=== PATIENT | female | born 1970 | race Caucasian/White ===

== ENCOUNTER 2022-08-21 10:11 | Inpatient (IN) ==
[2022-08-21] MEDS ORDERED: Ondansetron 4 MG/2 ML VIAL IVP PRN (12:19)
[2022-08-21] MEDS ORDERED: Naloxone 0.4 MG/ML INJ IVP PRN (12:19)
[2022-08-21] MEDS ORDERED: Ketorolac 30 MG/ML VIAL IM PRN (12:19)
[2022-08-21] MEDS ORDERED: SEMAGLUTIDE 0.25 MG/0.2 ML SQ SCH (12:45)
[2022-08-21 13:33] LABS: Basophils % 0.5 %; Eosinophils # 0.1 K/mcL (0.0-0.6); Eosinophils % 1.2 %; Hemoglobin 13.6 g/dL (11.5-15.4); Immature Granulocytes % 0.3 % (0-4); Lymphocytes # 1.3 K/mcL (0.6-4.6); Lymphocytes % 16.8 %; Mean Corpuscular HGB Conc 34.9 g/dL (31.6-35.5); Mean Corpuscular Hemoglobin 29.9 pg (28.0-33.3); Mean Corpuscular Volume 85.7 fL (83.0-100.0); Mean Platelet Volume 9.1 fL (9.4-12.4); Monocytes # 0.5 K/mcL (0.0-1.3); Monocytes % 6.8 %; Neutrophils # 5.7 K/mcL (1.6-8.9); Platelet Count 143 K/mcL (140-400); Red Blood Count 4.55 M/mcL (3.82-4.97); Red Cell Distribution Width 14.2 % (11.5-14.5); Segmented Neutrophils % 74.4 %; White Blood Count 7.7 K/mcL (4.3-11.1)
[2022-08-21 13:52] LABS: Albumin 3.4 g/dL (3.5-5.7); Albumin/Globulin Ratio 1.2 (1.1-2.2); Bilirubin,Total 1.2 mg/dL (0.3-1.0); Calcium 9.5 mg/dL (8.6-10.3); Globulin 2.9 g/dL (2.4-3.5); Potassium 4.4 mEq/L (3.5-5.1); Total Protein 6.3 g/dL (6.4-8.9)
[2022-08-21] MEDS: *HR* HYDROcodone/Acet 5/325 mg TABLET PO PRN (14:08)
[2022-08-21] MEDS ORDERED: D5% in Water 1,000 ML IVC PRN (14:51)
[2022-08-21] MEDS ORDERED: *HR* Dextrose 50 % in Water (Syg) 50 ML SYRINGE IVP PRN (14:51)
[2022-08-21] MEDS ORDERED: Dextrose Gel 15 GM/37.5 ML TUBE PO PRN ×2 (14:51)
[2022-08-21] MEDS: Insulin LISPRO 300 UNITS/3 ML VIAL SUBQ SCH ×2 (17:18→20:55)
[2022-08-21] MEDS: MetroNIDAZOLE 500 MG/100 ML 500 MG/100 ML BAG IVPB SCH (18:23)
[2022-08-21] MEDS: Gabapentin 300 MG CAPSULE PO SCH (20:54)
[2022-08-21] MEDS: 0.9 % Sodium Chloride 1,000 ML IVC SCH (20:55)
[2022-08-21] MEDS: *HR* OxyCODONE Immed Rel 5 MG TABLET PO PRN (21:01)
[2022-08-21] MEDS: Insulin DETEMIR 100 UNIT/ML X5UNITS SUBQ SCH (21:02)
[2022-08-22] MEDS: MetroNIDAZOLE 500 MG/100 ML 500 MG/100 ML BAG IVPB SCH ×3 (00:22→17:53)
[2022-08-22] MEDS: *HR* OxyCODONE Immed Rel 5 MG TABLET PO PRN ×3 (03:52→17:54)
[2022-08-22 06:04] LABS: Albumin 3.2 g/dL (3.5-5.7); Albumin/Globulin Ratio 1.1 (1.1-2.2); Bilirubin,Total 1.2 mg/dL (0.3-1.0); Calcium 8.7 mg/dL (8.6-10.3); Globulin 2.8 g/dL (2.4-3.5); Potassium 3.9 mEq/L (3.5-5.1)
[2022-08-22 07:25] LABS: Basophils % 0.6 %; Eosinophils # 0.2 K/mcL (0.0-0.6); Eosinophils % 2.7 %; Hematocrit 36.1 % (35.3-44.9); Hemoglobin 12.3 g/dL (11.5-15.4); Immature Granulocytes % 0.5 % (0-4); Lymphocytes # 1.2 K/mcL (0.6-4.6); Lymphocytes % 18.6 %; Mean Corpuscular HGB Conc 34.1 g/dL (31.6-35.5); Mean Corpuscular Hemoglobin 29.6 pg (28.0-33.3); Mean Platelet Volume 9.6 fL (9.4-12.4); Monocytes # 0.6 K/mcL (0.0-1.3); Monocytes % 8.6 %; Neutrophils # 4.6 K/mcL (1.6-8.9); Platelet Count 142 K/mcL (140-400); Red Blood Count 4.15 M/mcL (3.82-4.97); Red Cell Distribution Width 14.4 % (11.5-14.5); White Blood Count 6.6 K/mcL (4.3-11.1)
[2022-08-22] MEDS: Insulin LISPRO 300 UNITS/3 ML VIAL SUBQ SCH ×3 (09:03→17:54)
[2022-08-22] MEDS: Insulin DETEMIR 100 UNIT/ML X5UNITS SUBQ SCH (09:45)
[2022-08-22] MEDS: Gabapentin 300 MG CAPSULE PO SCH ×2 (09:46→22:52)
[2022-08-22] MEDS: Losartan/HCTZ 50-12.5 TABLET PO SCH (09:46)
[2022-08-22] MEDS ORDERED: Naloxone 0.4 MG/ML INJ IVP PRN (12:35)
[2022-08-22] MEDS: *HR* HYDROcodone/Acet 5/325 mg TABLET PO PRN (13:10)
[2022-08-22] MEDS: 0.9 % Sodium Chloride 1,000 ML IVC SCH (17:53)
[2022-08-22] MEDS: Mirtazapine 15 MG TABLET PO SCH (22:52)
[2022-08-23] MEDS: MetroNIDAZOLE 500 MG/100 ML 500 MG/100 ML BAG IVPB SCH ×3 (00:44→16:19)
[2022-08-23] MEDS: *HR* OxyCODONE Immed Rel 5 MG TABLET PO PRN ×3 (01:01→22:27)
[2022-08-23] MEDS: Insulin LISPRO 300 UNITS/3 ML VIAL SUBQ SCH ×5 (07:51→22:24)
[2022-08-23] MEDS: Insulin DETEMIR 100 UNIT/ML X5UNITS SUBQ SCH ×3 (07:53→22:25)
[2022-08-23] MEDS: Acetaminophen 325 MG TABLET PO PRN (07:59)
[2022-08-23] MEDS: Losartan/HCTZ 50-12.5 TABLET PO SCH (08:36)
[2022-08-23] MEDS: Gabapentin 300 MG CAPSULE PO SCH (08:36)
[2022-08-23 09:22] LABS: Albumin 2.9 g/dL (3.5-5.7); Albumin/Globulin Ratio 1.2 (1.1-2.2); Bilirubin,Total 1.1 mg/dL (0.3-1.0); Calcium 7.9 mg/dL (8.6-10.3); Globulin 2.5 g/dL (2.4-3.5); Potassium 4.3 mEq/L (3.5-5.1); Total Protein 5.4 g/dL (6.4-8.9)
[2022-08-23] MEDS ORDERED: Sennosides 8.6 MG TABLET PO PRN (17:05)
[2022-08-23] MEDS: Mirtazapine 15 MG TABLET PO SCH (22:15)
[2022-08-23] MEDS: Gabapentin 100 MG CAPSULE PO SCH (22:17)
[2022-08-24] MEDS: MetroNIDAZOLE 500 MG/100 ML 500 MG/100 ML BAG IVPB SCH ×4 (00:50→23:13)
[2022-08-24] MEDS: Gabapentin 100 MG CAPSULE PO SCH ×2 (08:17→22:01)
[2022-08-24] MEDS: Acetaminophen 325 MG TABLET PO PRN (08:18)
[2022-08-24] MEDS: Insulin LISPRO 300 UNITS/3 ML VIAL SUBQ SCH ×4 (08:27→22:08)
[2022-08-24] MEDS: Insulin DETEMIR 100 UNIT/ML X5UNITS SUBQ SCH ×2 (08:27→23:18)
[2022-08-24] MEDS: *HR* OxyCODONE Immed Rel 5 MG TABLET PO PRN ×2 (08:36→22:00)
[2022-08-24 16:07] LABS: Calcium 8.2 mg/dL (8.6-10.3); Potassium 4.8 mEq/L (3.5-5.1)
[2022-08-24] MEDS ORDERED: 0.9 % Sodium Chloride 1,000 ML IVC SCH (20:15)
[2022-08-24] MEDS: Mirtazapine 15 MG TABLET PO SCH (22:01)
[2022-08-25 05:05] LABS: Basophils % 0.8 %; Eosinophils # 0.2 K/mcL (0.0-0.6); Eosinophils % 3.6 %; Hematocrit 31.1 % (35.3-44.9); Immature Granulocytes % 0.6 % (0-4); Lymphocytes # 1.3 K/mcL (0.6-4.6); Lymphocytes % 25.8 %; Mean Corpuscular HGB Conc 34.1 g/dL (31.6-35.5); Mean Corpuscular Hemoglobin 29.9 pg (28.0-33.3); Mean Corpuscular Volume 87.6 fL (83.0-100.0); Mean Platelet Volume 9.3 fL (9.4-12.4); Monocytes # 0.6 K/mcL (0.0-1.3); Monocytes % 11.9 %; Neutrophils # 2.9 K/mcL (1.6-8.9); Platelet Count 157 K/mcL (140-400); Red Blood Count 3.55 M/mcL (3.82-4.97); Red Cell Distribution Width 13.8 % (11.5-14.5); Segmented Neutrophils % 57.3 %
[2022-08-25 05:15] LABS: Hemoglobin 10.6 g/dL (11.5-15.4)
[2022-08-25 05:24] LABS: Calcium 8.6 mg/dL (8.6-10.3); Potassium 4.3 mEq/L (3.5-5.1)
[2022-08-25] MEDS: *HR* OxyCODONE Immed Rel 5 MG TABLET PO PRN ×3 (05:45→20:55)
[2022-08-25] MEDS: Pantoprazole 40 MG VIAL IVP SCH (08:35)
[2022-08-25] MEDS: Gabapentin 100 MG CAPSULE PO SCH ×2 (08:35→20:34)
[2022-08-25] MEDS: Insulin DETEMIR 100 UNIT/ML X5UNITS SUBQ SCH ×2 (08:37→22:02)
[2022-08-25] MEDS: MetroNIDAZOLE 500 MG/100 ML 500 MG/100 ML BAG IVPB SCH (08:39)
[2022-08-25] MEDS: Insulin LISPRO 300 UNITS/3 ML VIAL SUBQ SCH ×4 (08:57→21:42)
[2022-08-25] MEDS: Ertapenem 1,000 MG in 0.9 % Sodium Chloride Mini Bag 100 ML IVPB SCH (12:38)
[2022-08-25] MEDS: Mirtazapine 15 MG TABLET PO SCH (20:34)
[2022-08-26] MEDS: Insulin LISPRO 300 UNITS/3 ML VIAL SUBQ SCH ×4 (09:44→22:01)
[2022-08-26] MEDS: Gabapentin 100 MG CAPSULE PO SCH ×2 (09:44→21:58)
[2022-08-26] MEDS: Pantoprazole 40 MG VIAL IVP SCH (09:45)
[2022-08-26] MEDS: Insulin DETEMIR 100 UNIT/ML X5UNITS SUBQ SCH ×2 (09:50→22:04)
[2022-08-26] MEDS: Ertapenem 1,000 MG in 0.9 % Sodium Chloride Mini Bag 100 ML IVPB SCH (12:42)
[2022-08-26] MEDS: *HR* OxyCODONE Immed Rel 5 MG TABLET PO PRN (21:57)
[2022-08-26] MEDS: Mirtazapine 15 MG TABLET PO SCH (21:58)
[2022-08-27 05:26] LABS: Hematocrit 33.1 % (35.3-44.9); Hemoglobin 11.1 g/dL (11.5-15.4); Mean Corpuscular HGB Conc 33.5 g/dL (31.6-35.5); Mean Corpuscular Hemoglobin 29.2 pg (28.0-33.3); Mean Corpuscular Volume 87.1 fL (83.0-100.0); Mean Platelet Volume 9.2 fL (9.4-12.4); Platelet Count 158 K/mcL (140-400); Red Cell Distribution Width 13.8 % (11.5-14.5)
[2022-08-27 05:43] LABS: Calcium 8.7 mg/dL (8.6-10.3); Potassium 4.1 mEq/L (3.5-5.1)
[2022-08-27] MEDS ORDERED: 0.9 % Sodium Chloride 1,000 ML IVC SCH (07:00)
[2022-08-27] MEDS: Insulin LISPRO 300 UNITS/3 ML VIAL SUBQ SCH ×4 (07:50→20:24)
[2022-08-27] MEDS: Pantoprazole 40 MG VIAL IVP SCH (07:56)
[2022-08-27] MEDS: Gabapentin 100 MG CAPSULE PO SCH ×2 (07:58→20:17)
[2022-08-27] MEDS: Insulin DETEMIR 100 UNIT/ML X5UNITS SUBQ SCH ×2 (08:00→20:25)
[2022-08-27] MEDS ORDERED: *HR* HYDROMORPHONE 2 MG/ML VIAL ONE (08:27)
[2022-08-27] MEDS ORDERED: Lidocaine -MPF 2% 2 ML VIAL ONE (08:32)
[2022-08-27] MEDS ORDERED: *HR* Succinylcholine 200 MG/10 ML VIAL IVP ONE (08:32)
[2022-08-27] MEDS ORDERED: *HR* Propofol 200 MG/20 ML VIAL IVP ONE (08:32)
[2022-08-27] MEDS ORDERED: *HR* Midazolam HCl 2 MG/2 ML VIAL ONE (08:33)
[2022-08-27] MEDS ORDERED: *HR* FentaNYL (PF) 100 MCG/2 ML VIAL ONE (08:33)
[2022-08-27] MEDS ORDERED: Ondansetron 4 MG/2 ML VIAL IVP PRN ×2 (08:54→13:43)
[2022-08-27] MEDS ORDERED: Promethazine 6.25 MG in Water for inj. (sterile) 20 ML IVPB PRN ×2 (08:54→13:43)
[2022-08-27] MEDS ORDERED: *HR* OxyCODONE Immed Rel 5 MG TABLET PO PRN ×2 (08:54→13:43)
[2022-08-27] MEDS ORDERED: Ondansetron 4 MG/2 ML VIAL ONE (10:20)
[2022-08-27] MEDS ORDERED: EPHEDrine sulfate 50 MG/10 ML VIAL IVP ONE (10:25)
[2022-08-27] MEDS: Ertapenem 1,000 MG in 0.9 % Sodium Chloride Mini Bag 100 ML IVPB SCH (11:00)
[2022-08-27] MEDS: *HR* HYDROmorphone PF 0.5 MG/0.5 ML SYRINGE IVP PRN ×4 (11:50→12:22)
[2022-08-27] MEDS ORDERED: Naloxone 0.4 MG/ML INJ IVP PRN (13:43)
[2022-08-27] MEDS ORDERED: *HR* Dextrose 50 % in Water (Syg) 50 ML SYRINGE IVP PRN (13:43)
[2022-08-27] MEDS ORDERED: *HR* HYDROcodone/Acet 5/325 mg TABLET PO PRN (13:43)
[2022-08-27] MEDS ORDERED: Acetaminophen 325 MG TABLET PO PRN (13:43)
[2022-08-27] MEDS ORDERED: D5% in Water 1,000 ML IVC PRN (13:43)
[2022-08-27] MEDS ORDERED: Sennosides 8.6 MG TABLET PO PRN (13:43)
[2022-08-27] MEDS ORDERED: Dextrose Gel 15 GM/37.5 ML TUBE PO PRN ×2 (13:43)
[2022-08-27] MEDS: *HR* OxyCODONE Immed Rel 5 MG TABLET PO PRN (15:35)
[2022-08-27] MEDS: Mirtazapine 15 MG TABLET PO SCH (20:17)
[2022-08-28 03:55] LABS: Hematocrit 31.9 % (35.3-44.9); Mean Corpuscular HGB Conc 34.5 g/dL (31.6-35.5); Mean Corpuscular Hemoglobin 29.7 pg (28.0-33.3); Mean Corpuscular Volume 86.2 fL (83.0-100.0); Mean Platelet Volume 9.2 fL (9.4-12.4); Platelet Count 162 K/mcL (140-400); Red Cell Distribution Width 13.7 % (11.5-14.5); White Blood Count 4.9 K/mcL (4.3-11.1)
[2022-08-28 04:12] LABS: Calcium 8.9 mg/dL (8.6-10.3); Potassium 4.5 mEq/L (3.5-5.1)
[2022-08-28] MEDS ORDERED: Pantoprazole 40 MG VIAL IVP SCH (09:00)
[2022-08-28] MEDS: Insulin LISPRO 300 UNITS/3 ML VIAL SUBQ SCH ×4 (09:32→20:10)
[2022-08-28] MEDS: Insulin DETEMIR 100 UNIT/ML X5UNITS SUBQ SCH ×2 (09:33→21:36)
[2022-08-28] MEDS: Losartan/HCTZ 50-12.5 TABLET PO SCH (09:33)
[2022-08-28] MEDS: Gabapentin 100 MG CAPSULE PO SCH ×2 (09:33→21:33)
[2022-08-28] MEDS: Ertapenem 1,000 MG in 0.9 % Sodium Chloride Mini Bag 100 ML IVPB SCH (13:10)
[2022-08-28] MEDS: Mirtazapine 15 MG TABLET PO SCH (21:32)
[2022-08-28] MEDS: *HR* OxyCODONE Immed Rel 5 MG TABLET PO PRN (21:32)
[2022-08-29 06:12] LABS: BUN/Creatinine Ratio 23 (6-26); Blood Urea Nitrogen 17 mg/dL (6-20); Calcium 8.5 mg/dL (8.6-10.3); Carbon Dioxide 30 mEq/L (23-29); Chloride 109 mEq/L (98-107); Glucose 89 mg/dL (70-105); Osmolality,Calculated 295 (280-300); Sodium 142 mEq/L (136-145)
[2022-08-29] MEDS: Insulin LISPRO 300 UNITS/3 ML VIAL SUBQ SCH ×4 (07:54→22:38)
[2022-08-29] MEDS: Gabapentin 100 MG CAPSULE PO SCH ×2 (10:06→22:37)
[2022-08-29] MEDS: Insulin DETEMIR 100 UNIT/ML X5UNITS SUBQ SCH ×2 (10:06→22:40)
[2022-08-29] MEDS: Losartan/HCTZ 50-12.5 TABLET PO SCH (10:06)
[2022-08-29] MEDS: Ertapenem 1,000 MG in 0.9 % Sodium Chloride Mini Bag 100 ML IVPB SCH (13:11)
[2022-08-29 18:23] LABS: Hematocrit 33.6 % (35.3-44.9); Mean Corpuscular HGB Conc 33.6 g/dL (31.6-35.5); Mean Corpuscular Hemoglobin 29.8 pg (28.0-33.3); Mean Corpuscular Volume 88.7 fL (83.0-100.0); Mean Platelet Volume 8.9 fL (9.4-12.4); Platelet Count 178 K/mcL (140-400); Red Blood Count 3.79 M/mcL (3.82-4.97); Red Cell Distribution Width 13.9 % (11.5-14.5); White Blood Count 4.3 K/mcL (4.3-11.1)
[2022-08-29 18:44] LABS: Hemoglobin 11.3 g/dL (11.5-15.4)
[2022-08-29] MEDS: Mirtazapine 15 MG TABLET PO SCH (22:37)
[2022-08-30] MEDS: Insulin LISPRO 300 UNITS/3 ML VIAL SUBQ SCH ×4 (08:58→20:55)
[2022-08-30] MEDS: Gabapentin 100 MG CAPSULE PO SCH ×2 (09:35→20:55)
[2022-08-30] MEDS: Losartan/HCTZ 50-12.5 TABLET PO SCH (09:35)
[2022-08-30] MEDS: Insulin DETEMIR 100 UNIT/ML X5UNITS SUBQ SCH ×2 (09:36→20:55)
[2022-08-30] MEDS: Ertapenem 1,000 MG in 0.9 % Sodium Chloride Mini Bag 100 ML IVPB SCH (12:39)
[2022-08-30] MEDS: polyethylene glycoL 3350 17 GM POWD.PACK PO SCH (16:06)
[2022-08-30] MEDS: Mirtazapine 15 MG TABLET PO SCH (20:54)
[2022-08-31 05:21] VITALS: O2SAT 97
[2022-08-31 06:30] LABS: Hematocrit 34.4 % (35.3-44.9); Hemoglobin 11.6 g/dL (11.5-15.4); Mean Corpuscular HGB Conc 33.7 g/dL (31.6-35.5); Mean Corpuscular Hemoglobin 29.3 pg (28.0-33.3); Mean Corpuscular Volume 86.9 fL (83.0-100.0); Mean Platelet Volume 9.2 fL (9.4-12.4); Platelet Count 190 K/mcL (140-400); Red Blood Count 3.96 M/mcL (3.82-4.97); Red Cell Distribution Width 13.7 % (11.5-14.5)
[2022-08-31 06:33] LABS: White Blood Count 10.8 K/mcL (4.3-11.1)
[2022-08-31 06:37] LABS: Potassium 4.4 mEq/L (3.5-5.1)
[2022-08-31] MEDS: Insulin LISPRO 300 UNITS/3 ML VIAL SUBQ SCH ×3 (09:10→17:24)
[2022-08-31] MEDS: polyethylene glycoL 3350 17 GM POWD.PACK PO SCH (09:10)
[2022-08-31] MEDS: Insulin DETEMIR 100 UNIT/ML X5UNITS SUBQ SCH (09:11)
[2022-08-31] MEDS: Gabapentin 100 MG CAPSULE PO SCH (09:11)
[2022-08-31] MEDS: Losartan/HCTZ 50-12.5 TABLET PO SCH (09:11)
[2022-08-31] MEDS: Ertapenem 1,000 MG in 0.9 % Sodium Chloride Mini Bag 100 ML IVPB SCH (11:51)
[2022-08-31] MEDS ORDERED: Meropenem 1,000 MG in Water for inj. (sterile) 20 ML IVP SCH (16:00)
[2022-08-31 16:06] VITALS: BP 134/81; PULSE 71; TEMP 98.6
== END 2022-08-31 18:58 | disposition home health service (06) | DRG 856 ==
LOC: 3ANU → SUATTDRO 10:16
PROVIDERS: ADMIT Surgery; ATTEND Internal Medicine